=== PATIENT | female | born 1985 | race African-American/Black ===

== ENCOUNTER 2017-09-10 15:27 | Inpatient (IN) ==
[2017-09-10] MEDS ORDERED: BUTORPHANOL 1 MG/ML VIAL IV PRN (15:41)
[2017-09-10] MEDS ORDERED: ONDANSETRON 4 MG/2 ML VIAL IV PRN (15:41)
[2017-09-10] MEDS ORDERED: MEPERIDINE 50 MG/1 ML VIAL IM PRN (15:41)
[2017-09-10] MEDS ORDERED: LACTATED RINGERS 1,000 ML IV PRN (15:41)
[2017-09-10] MEDS ORDERED: DINOPROSTONE VAG GEL 10 MG SYRINGE VAG ONE (15:44)
[2017-09-10] MEDS ORDERED: LACTATED RINGERS 1,000 ML IV SCH (16:00)
[2017-09-10 16:09] LABS: Basophils % 0.3 % (0.0-0.8); Eosinophils % 0.1 % (0.00-10.9); Hematocrit 34.6 VOL% (35.7-47.0); Hemoglobin 10.3 GM/DL (12.0-16.0); Immature Granulocytes % 0.5 %; Immature Granulocytes Absolute 0.04 #; Lymphocytes # 1.7 10*3/uL (1.4-4.0); Lymphocytes % 18.8 % (21.3-54.2); Mean Corpuscular HGB Conc 29.8 GM/DL (32-36); Mean Corpuscular Hemoglobin 21 PG (27-34); Mean Platelet Volume 10.6 FL (9.6-12.0); Monocytes # 0.5 10*3/uL (0.11-0.8); Monocytes % 5.6 % (1.7-12.7); NRBC # 0.02 10*3/uL; Neutrophils # 6.6 10*3/uL (1.4-7.4); Neutrophils % 74.7 % (38.7-73.9); Platelet Count 228 T/CUMM (130-400); Red Blood Count 4.87 MC/CUMM (3.8-5.5); Red Cell Distribution Width 21.6 % (9.3-17.3); White Blood Count 8.8 T/CUMM (4-12)
[2017-09-10] MEDS ORDERED: diphenhydrAMINE 50 MG/1 ML VIAL IV PRN (16:20)
[2017-09-10] MEDS ORDERED: FAMOTIDINE 20 MG/2 ML VIAL IV ONE (16:20)
[2017-09-10] MEDS ORDERED: ePHEDrine 50 MG/ML AMP IV PRN (16:20)
[2017-09-10] MEDS ORDERED: fentaNYL 2 MCG/ROPIV 0.2% EPID 150 ML EPIDURAL SCH (16:20)
[2017-09-10] MEDS ORDERED: PROMETHAZINE 25 MG/1 ML VIAL IM ONE (16:20)
[2017-09-10] MEDS ORDERED: CITRIC ACID/SODIUM CITRATE 30 ML UDCUP PO ONE (16:20)
[2017-09-10] MEDS ORDERED: hydrOXYzine HCL 25 MG/1 ML VIAL IM PRN (16:20)
[2017-09-10 16:33] LABS: Albumin 2.8 G/DL (3.4-5.0); Bilirubin,Total 1.7 MG/DL (0.2-1.0); Calcium 8.8 MG/DL (8.5-10.1); Osmolality,Calculated 268.8 MOS/KG (273-304); Potassium 3.9 MMOL/L (3.5-5.1); Total Protein 6.7 G/DL (6.4-8.3)
[2017-09-10 20:10] LABS: Apearance,Urine CLEAR (Clear); Bilirubin,Urine Negative (Negative); Blood, Urine Negative (Negative); Glucose,Urine (UA) Negative (Negative); Ketones,Urine 5 mg/dL (Negative); Mucus,Urine Occasional /LPF (Occasional); Nitrite,Urine Negative (Negative); Protein,Urine Negative; RBC,Urine <1 /HPF (0-4); Squamous Epithelial Cell,Urine Occasional /HPF (0-10); Urine Color Yellow (Yellow); Urine Specific Gravity 1.008 (1.001-1.035); WBC,Urine 1 /HPF (0-6)
[2017-09-11] MEDS: OXYTOCIN/LR 20 UNIT/1,000 ML BAG IV SCH ×2 (01:52→14:35)
[2017-09-11] MEDS ORDERED: TERBUTALINE 1 MG/1 ML VIAL SUBCUT ONE (03:46)
[2017-09-11] MEDS ORDERED: LIDOCAINE 1% 50 ML VIAL ONE (09:56)
[2017-09-11] MEDS ORDERED: CARBOPROST TROMETHAMINE 250 MCG/ML AMP IM ONE (09:57)
[2017-09-11] MEDS ORDERED: METHYLERGONOVINE 0.2 MG/1 ML AMP ONE (09:57)
[2017-09-11] MEDS ORDERED: miSOPROStol 200 MCG TABLET ONE (09:57)
[2017-09-11 10:47] LABS: Cord Arterial Blood HCO3 20.7 MMOL/L
[2017-09-11 10:51] LABS: Cord Venous Blood HCO3 21.5 MMOL/L; Cord Venous Blood PCO2 46.1 MMHG; Cord Venous Blood PO2 24.8
[2017-09-11] MEDS ORDERED: IBUPROFEN 800 MG TABLET PO PRN (12:58)
[2017-09-11] MEDS ORDERED: oxyCODONE/ACETAMINOPHEN 5-325 MG TABLET PO PRN ×2 (12:59→13:00)
[2017-09-11] MEDS ORDERED: ACETAMINOPHEN/CODEINE 300-30 MG TABLET PO PRN (16:10)
[2017-09-11] MEDS ORDERED: MEASLES/MUMPS/RUBELLA VACCINE 0.5 ML VIAL SUBCUT ONE (16:13)
[2017-09-11] MEDS ORDERED: DIPH/TET/ACEL PERT BOOSTER VACCINE 0.5 ML VIAL IM ONE (16:13)
[2017-09-11] MEDS ORDERED: HYDROCORTISONE 2.5% RECTAL CREAM 30 GM TUBE TOP PRN (16:13)
[2017-09-11] MEDS ORDERED: WITCH HAZEL PADS 100/JAR TOP PRN (16:13)
[2017-09-11] MEDS ORDERED: BENZOCAINE 20%/MENTHOL 0.5% SPRAY 56 GM CAN TOP PRN (16:13)
[2017-09-11] MEDS ORDERED: ACETAMINOPHEN 325 MG TABLET PO PRN (16:13)
[2017-09-11] MEDS ORDERED: BISACODYL 10 MG SUPP RECTAL PRN (16:13)
[2017-09-11] MEDS ORDERED: LANOLIN 50% CREAM 0.3 OZ TUBE TOP PRN (16:13)
[2017-09-11] MEDS ORDERED: RHO(D) IMMUNE GLOBULIN 300 MCG SYRINGE IM ONE (16:13)
[2017-09-11] MEDS: DOCUSATE SODIUM 100 MG CAPSULE PO SCH (21:11)
[2017-09-12 07:02] LABS: Basophils % 0.2 % (0.0-0.8); Eosinophils # 0.2 10*3/uL (0.0-0.87); Eosinophils % 1.5 % (0.00-10.9); Hematocrit 28.9 VOL% (35.7-47.0); Hemoglobin 8.4 GM/DL (12.0-16.0); Immature Granulocytes % 0.5 %; Immature Granulocytes Absolute 0.07 #; Lymphocytes # 2.1 10*3/uL (1.4-4.0); Lymphocytes % 16.5 % (21.3-54.2); Mean Corpuscular HGB Conc 29.1 GM/DL (32-36); Mean Corpuscular Hemoglobin 21 PG (27-34); Mean Corpuscular Volume 71.9 FL (87-102); Mean Platelet Volume 11.1 FL (9.6-12.0); Monocytes # 0.7 10*3/uL (0.11-0.8); Monocytes % 5.7 % (1.7-12.7); Neutrophils # 9.8 10*3/uL (1.4-7.4); Neutrophils % 75.6 % (38.7-73.9); Platelet Count 176 T/CUMM (130-400); Red Blood Count 4.02 MC/CUMM (3.8-5.5); Red Cell Distribution Width 21.2 % (9.3-17.3)
[2017-09-12] MEDS: DOCUSATE SODIUM 100 MG CAPSULE PO SCH ×2 (08:41→21:38)
[2017-09-12] MEDS: FERROUS SULFATE 325 MG TABLET PO SCH ×2 (11:11→21:38)
[2017-09-13] MEDS ORDERED: IBUPROFEN 800 MG TABLET PO PRN
[2017-09-13 07:22] VITALS: BP 105/96
[2017-09-13] MEDS: FERROUS SULFATE 325 MG TABLET PO SCH (08:38)
[2017-09-13] MEDS: DOCUSATE SODIUM 100 MG CAPSULE PO SCH (08:39)
[2017-09-13] MEDS ORDERED: DIPH/TET/ACEL PERT BOOSTER VACCINE 0.5 ML VIAL IM ONE (10:19)
== END 2017-09-13 13:00 | disposition home or self-care (01) | DRG 983 ==
LOC: N.LDOUT 15:27 → N.LD 15:31 → N.OB 09-11 11:49
PROVIDERS: ADMIT Obstetrics & Gynecology; ATTEND Obstetrics & Gynecology